=== PATIENT | female | born 1940 | race American Indian/Alaskan Native ===

== ENCOUNTER 2017-10-06 06:27 | Observation (INO) | payer MEDICARE, MEDICAID ==
[2017-10-06] MEDS ORDERED: ASPIRIN PO ONE (06:49)
[2017-10-06 07:56] LABS: Basophils % (Auto) 0.5 % (0.0-1.8); Eosinophils # (Auto) 0.1 K/mm3 (0.0-0.4); Eosinophils % (Auto) 2.6 % (0.0-4.3); Hematocrit 37.4 % (30.3-42.9); Hemoglobin 12.7 gm/dl (10.1-14.3); Lymphocytes # (Auto) 1.3 K/mm3 (1.2-5.4); Lymphocytes % (Auto) 23.9 % (13.4-35.0); Mean Corpuscular HGB Conc 34 % (30-34); Mean Corpuscular Hemoglobin 30 pg (28-32); Mean Corpuscular Volume 87 fl (79-97); Monocytes # (Auto) 0.4 K/mm3 (0.0-0.8); Monocytes % (Auto) 6.4 % (0.0-7.3); Platelet Count 312 K/mm3 (140-440); Red Blood Count 4.31 M/mm3 (3.65-5.03); Red Cell Distribution Width 14.1 % (13.2-15.2)
[2017-10-06 08:04] LABS: BUN/Creatinine Ratio 20; Blood Urea Nitrogen 12 mg/dL (7-17); Calcium 9.2 mg/dL (8.4-10.2); Hemolysis Index 97
[2017-10-06] MEDS ORDERED: ASPIRIN ONE (09:47)
[2017-10-06] MEDS ORDERED: MORPHINE IV ONE (10:43)
[2017-10-06] MEDS ORDERED: ZOFRAN IV ONE (10:43)
--- NOTE | 2017-10-06 10:47 | Emergency Department Report ---
ED Chest Pain HPI - General Chief Complaint: Chest Pain Stated Complaint: RIGHT SHOULDER PAIN Time Seen by Provider: 10/06/17 10:32 Source: patient Mode of arrival: Wheelchair Limitations: Physical Limitation - History of Present Illness Initial Comments: Patient is 76 years old female recently moved from [place]. Patient had history of coronary artery disease, pacemaker and hypertension. Patient presented complaining of left sided chest pain started yesterday, on and off. Patient stated that pain is better now. Pain radiated to neck and right jaw. Patient denied any shortness of breath. Patient also complained off right shoulder pain, she stated that she fell on September 30 , her symptoms get better until 2 days ago when she started having trouble using her right shoulder. MD Complaint: chest pain -: Last night Pain Location: left chest Severity: moderate Quality: aching, sharp Consistency: intermittent - Related Data Home Medications Medication Instructions Recorded Confirmed Last Taken Furosemide [Lasix] 20 mg PO QDAY 10/06/17 10/06/17 10/05/17 Lisinopril [Zestril TAB] 40 mg PO QDAY 10/06/17 10/06/17 10/05/17 amLODIPine [Norvasc] 10 mg PO DAILY 10/06/17 10/06/17 10/05/17 Allergies Allergy/AdvReac Type Severity Reaction Status Date / Time No Known Allergies Allergy Unverified 10/06/17 06:49 Heart Score - HEART Score History: Moderately suspicious EKG: Non-specific Age: > 65 Risk factors: 1-2 risk factors Troponin: < normal limit HEART Score: 5 - Critical Actions Critical Actions: 4-6 pts:12-16.6% risk of adverse cardiac event. Should be admitted ED Review of Systems ROS: Stated complaint: RIGHT SHOULDER PAIN Other details as noted in HPI Comment: All other systems reviewed and negative Constitutional: denies: chills, fever Respiratory: denies: cough, shortness of breath, SOB with exertion, SOB at rest , wheezing Cardiovascular: chest pain. denies: palpitations Gastrointestinal: denies: abdominal pain, nausea, vomiting, diarrhea, constipation, hematemesis, melena, hematochezia Neurological: denies: headache, weakness, numbness, paresthesias, confusion, abnormal gait, vertigo ED Past Medical Hx - Past Medical History Previous Medical History?: Yes Hx Hypertension: Yes Hx Heart Attack/AMI: Yes Hx Asthma: Yes - Surgical History Past Surgical History?: Yes Hx Pacemaker: Yes - Social History Smoking Status: Former Smoker Substance Use Type: None - Medications Home Medications: Home Medications Medication Instructions Recorded Confirmed Last Taken Type Furosemide [Lasix] 20 mg PO QDAY 10/06/17 10/06/17 10/05/17 History Lisinopril [Zestril TAB] 40 mg PO QDAY 10/06/17 10/06/17 10/05/17 History amLODIPine [Norvasc] 10 mg PO DAILY 10/06/17 10/06/17 10/05/17 History ED Physical Exam - General Limitations: Physical Limitation General appearance: alert, in no apparent distress - Head Head exam: Present: atraumatic, normocephalic, normal inspection - Eye Eye exam: Present: normal appearance - ENT ENT exam: Present: normal exam, normal orophraynx, mucous membranes moist - Neck Neck exam: Present: normal inspection, full ROM. Absent: tenderness, meningismus, lymphadenopathy, thyromegaly - Respiratory Respiratory exam: Present: normal lung sounds bilaterally. Absent: respiratory distress, wheezes, rales, rhonchi, stridor, chest wall tenderness, accessory muscle use, decreased breath sounds, prolonged expiratory - Cardiovascular Cardiovascular Exam: Present: regular rate, normal rhythm, normal heart sounds - GI/Abdominal GI/Abdominal exam: Present: soft, normal bowel sounds. Absent: distended, tenderness, guarding, rebound, rigid, diminished bowel sounds, organomegaly, mass, bruit, pulsatile mass, hernia - Extremities Exam Extremities exam: Present: normal inspection. Absent: full ROM (right shoulder with decreased range of motion and tenderness.), tenderness, normal capillary refill, pedal edema, joint swelling, calf tenderness - Back Exam Back exam: Present: normal inspection, full ROM. Absent: tenderness, CVA tenderness (R), CVA tenderness (L), muscle spasm, paraspinal tenderness, vertebral tenderness, rash noted - Neurological Exam Neurological exam: Present: alert, oriented X3, CN II-XII intact, normal gait, reflexes normal - Skin Skin exam: Present: warm, intact, normal color ED Course Vital Signs 10/06/17 10/06/17 10/06/17 06:44 09:20 09:27 Temperature 98.2 F Pulse Rate 93 H Respiratory 18 18 Rate Blood Pressure 142/86 O2 Sat by Pulse 96 98 95 Oximetry 10/06/17 10/06/17 10/06/17 09:30 09:45 11:25 Temperature Pulse Rate 70 74 73 Respiratory 20 13 18 Rate Blood Pressure 128/73 128/73 126/74 O2 Sat by Pulse 97 97 Oximetry 10/06/17 10/06/17 11:31 11:45 Temperature Pulse Rate 77 80 Respiratory 14 12 Rate Blood Pressure 126/74 126/74 O2 Sat by Pulse 94 97 Oximetry ED Medical Decision Making - Lab Data Result diagrams: 10/06/17 14:56 10/06/17 15:01 - EKG Data -: EKG Interpreted by Me EKG shows normal: sinus rhythm - EKG Data Interpretation: no acute changes - Medical Decision Making I discussed the patient is Dr. Hi, he agreed to admit the patient to his service. Critical care attestation.: If time is entered above; I have spent that time in minutes in the direct care of this critically ill patient, excluding procedure time. ED Disposition Clinical Impression: Chest pain, Sprain of right shoulder Disposition: - OP ADMIT IP TO THIS HOSP Is pt being admited?: Yes Condition: Stable
--- NOTE | 2017-10-06 11:51 | History and Physical Report ---
History of Present Illness Chief complaint: My chest hurts History of present illness: 76 YO Female with HTN, DE, Asthma, Obesity, Cardiomypathy S/P Pacemaker placement presents to ED for evaluation. Pt states that she has experienced pain in her chest over the past 2 days with worsening symptoms over the past 1 day. Pt states that the pain is 5/10, substernal, localized to the left chest, radiates to neck and right jaw, intermittent, sharp in nature, not worsened with exertion, or relieved with rest. Pt also complains of right shoulder pain after she slipped and experienced a fall from a standing position subsequently landing on her right shoulder. Pt also acknowledges intermittent palpitations, but denies fever, chills,NVD, Syncope, BRBPR, Productive cough, skin rash, recent ill contacts, seizures, unilateral leg swelling, calf pain, prolonged travel/immobility, individual/family history of DVT/PE, hemoptysis, loss of bowel/bladder continence. Pt seen and evaluated in ED and found to have symptoms consistent with ACS, as well as Diastolic CHF. Pt admitted to telemetry. Cardiology consulted in ED. Past History Past Medical History: acute DE, hypertension, other (Asthma, Obesity, Cardiomyopathy) Past Surgical History: Other (Pacemaker placement) Social history: single, lives with family. denies: smoking, alcohol abuse, prescription drug abuse Family history: diabetes, hypertension Medications and Allergies Allergies Allergy/AdvReac Type Severity Reaction Status Date / Time No Known Allergies Allergy Unverified 10/06/17 06:49 Home Medications Medication Instructions Recorded Confirmed Last Taken Type Furosemide [Lasix] 20 mg PO QDAY 10/06/17 10/06/17 10/05/17 History Lisinopril [Zestril TAB] 40 mg PO QDAY 10/06/17 10/06/17 10/05/17 History amLODIPine [Norvasc] 10 mg PO DAILY 10/06/17 10/06/17 10/05/17 History Review of Systems Constitutional: no weight gain, no fever, no chills, no sweats Ears, nose, mouth and throat: no ear pain, no ear discharge, no tinnitis, no decreased hearing, no nasal congestion, no nasal discharge Breasts: no change in shape, no swelling, no mass Cardiovascular: chest pain, shortness of breath Respiratory: no cough, no cough with sputum, no excessive sputum, no hemoptysis Gastrointestinal: no abdominal pain, no nausea, no vomiting, no diarrhea, no constipation Genitourinary Female: no pelvic pain, no flank pain, no menorrhagia, no dysuria , no urinary frequency, no urgency Rectal: no pain, no incontinence, no bleeding Musculoskeletal: no neck stiffness, no neck pain, no shooting arm pain, no arm numbness/tingling, no low back pain, no shooting leg pain, no leg numbness/ tingling Integumentary: no pruritis, no redness, no sores, no wounds, no jaundice, no boils Neurological: no head injury, no transient paralysis, no paralysis, no weakness , no parathesias, no numbness, no tingling, no seizures, no syncope Psychiatric: no anxiety, no memory loss, no change in sleep habits, no sleep disturbances, no insomnia, no hypersomnia Endocrine: no cold intolerance, no heat intolerance, no polyphagia, no excessive thirst, no polydipsia, no polyuria, no nocturia Hematologic/Lymphatic: no easy bruising, no easy bleeding, no lymphadenopathy, no lymphedema Allergic/Immunologic: no urticaria, no allergic rhinitis, no wheezing, no persistent infections, no anaphylaxis, no angioedema Exam - Constitutional Vitals: Temp Pulse Resp BP Pulse Ox 98.2 F 93 H 18 142/86 96 10/06/17 06:44 10/06/17 06:44 10/06/17 06:44 10/06/17 06:44 10/06/17 06:44 General appearance: Present: mild distress, obese - EENT Eyes: Present: PERRL ENT: hearing intact, clear oral mucosa - Neck Neck: Present: supple, normal ROM - Respiratory Respiratory effort: normal Respiratory: bilateral: CTA - Cardiovascular Heart Sounds: Present: S1 & S2. Absent: rub, click - Extremities Extremities: pulses symmetrical, No edema Peripheral Pulses: within normal limits - Abdominal General gastrointestinal: Present: soft, non-tender, non-distended, normal bowel sounds Female genitourinary: Present: normal - Integumentary Integumentary: Present: clear, warm, dry - Musculoskeletal Musculoskeletal: gait normal, strength equal bilaterally - Psychiatric Psychiatric: appropriate mood/affect, intact judgment & insight - Neurologic Neurologic: CNII-XII intact, moves all extremities Results - Labs CBC & Chem 7: 10/06/17 14:56 10/06/17 15:01 Labs: Abnormal lab results 10/06/17 10/06/17 Range/Units 07:26 10:45 D-Dimer 851.45 H (0-234) ng/mlDDU Creatinine 0.6 L (0.7-1.2) mg/dL Assessment and Plan - Patient Problems (1) ACS (acute coronary syndrome) Current Visit: Yes Status: Acute Plan to address problem: Admit to telemetry: serial cardiac enzymes, ekg, telemetry, d dimer, bnp, cardiology consulted, Chest X ray, morphine, supplemental oxygen, nitro, aspirin. (2) CHF (congestive heart failure) Current Visit: Yes Status: Acute Qualifiers: Heart failure type: diastolic Heart failure chronicity: acute Qualified Code(s): I50.31 - Acute diastolic (congestive) heart failure Plan to address problem: Strict I/O, Afterload reduction, daily weight, monitor uop q shift, Echo, Cardiology consulted, Chest X ray, BNP, D dimer, CT angio chest. (3) HTN (hypertension) Current Visit: Yes Status: Acute Qualifiers: Hypertension type: essential hypertension Qualified Code(s): I10 - Essential (primary) hypertension Plan to address problem: Monitor BP q shift, continue medical management, IV hydralazine prn (4) Sprain of right shoulder Current Visit: Yes Status: Acute Qualifiers: Encounter type: initial encounter Plan to address problem: Shoulder x ray, pain control (5) DVT prophylaxis Current Visit: Yes Status: Acute Plan to address problem: SCD to BLE while in bed.
[2017-10-06] MEDS ORDERED: TYLENOL PO PRN (11:53)
[2017-10-06] MEDS ORDERED: SODIUM CHLORIDE FLUSH SYRINGE 10 ML IV PRN ×2 (11:53)
[2017-10-06] MEDS ORDERED: NITROSTAT SL PRN (11:53)
[2017-10-06] MEDS ORDERED: BABY ASPIRIN PO STA (11:53)
[2017-10-06] MEDS ORDERED: PROVENTIL IH PRN (11:53)
[2017-10-06] MEDS ORDERED: ZOFRAN IV PRN (11:53)
--- NOTE | 2017-10-06 12:31 | XRay Report ---
AP CHEST: HISTORY: chest pain AP view of the chest demonstrates a normal mediastinal and cardiac contour with clear lungs and normal bony and soft tissue structures. A 2-lead pacemaker device is in position. IMPRESSION: No acute cardiopulmonary process identified.
[2017-10-06 15:18] LABS: Basophils % (Auto) 0.2 % (0.0-1.8); Eosinophils # (Auto) 0.1 K/mm3 (0.0-0.4); Eosinophils % (Auto) 1.2 % (0.0-4.3); Hematocrit 38.3 % (30.3-42.9); Hemoglobin 12.3 gm/dl (10.1-14.3); Lymphocytes # (Auto) 1.4 K/mm3 (1.2-5.4); Lymphocytes % (Auto) 18.5 % (13.4-35.0); Mean Corpuscular HGB Conc 32 % (30-34); Mean Corpuscular Hemoglobin 29 pg (28-32); Mean Corpuscular Volume 89 fl (79-97); Monocytes # (Auto) 0.4 K/mm3 (0.0-0.8); Monocytes % (Auto) 5.6 % (0.0-7.3); Platelet Count 321 K/mm3 (140-440); Red Cell Distribution Width 13.9 % (13.2-15.2)
[2017-10-06 15:39] LABS: BUN/Creatinine Ratio 18; Blood Urea Nitrogen 11 mg/dL (7-17); Calcium 9.1 mg/dL (8.4-10.2); Hemolysis Index 44
[2017-10-06 15:44] LABS: Chol/HDL Ratio 3.9 %
--- NOTE | 2017-10-06 17:41 | Cat Scan Report ---
FINAL REPORT PROCEDURE: CT ANGIO CHEST TECHNIQUE: Computerized axial tomographic angiography of the chest and pulmonary arteries was performed after the IV injection of iodinated nonionic contrast. The image data was postprocessed using maximum intensity projection (MIP) and 2-dimensional multiplanar reformatted (MPR) techniques. The examination is specifically tailored to the evaluation of the pulmonary arteries per clinical request. HISTORY: Short of breath 786.09, chest pain 786.50, CHEST PAIN COMPARISON: No prior studies are available for comparison. FINDINGS: Heart and pericardium: Heart is mildly prominent in size. No pericardial effusion or thickening is seen. Dual lead pacemaker is present. Thoracic aorta: No aneurysm or dissection. Pulmonary vasculature: Mildly limited evaluation due to motion artifact. No gross evidence of pulmonary emboli Lymph nodes: No enlarged thoracic lymph nodes. Lungs: No infiltrates or focal lesions are identified. Pleural space: No effusion, thickening, or pneumothorax. Musculoskeletal structures: Thoracic spine degenerative disc changes are present. Upper abdominal structures: No significant abnormality. IMPRESSION: Mildly limited evaluation due to motion artifact. No pulmonary emboli are identified
[2017-10-06] MEDS: MORPHINE IV PRN ×2 (18:26→23:00)
[2017-10-06] MEDS: PEPCID PO SCH (22:07)
[2017-10-06] MEDS: SODIUM CHLORIDE FLUSH SYRINGE 10 ML IV SCH (22:07)
[2017-10-07] MEDS: MORPHINE IV PRN ×2 (04:15→11:25)
--- NOTE | 2017-10-07 07:35 | XRay Report ---
FINAL REPORT EXAM: XR SHOULDER 2+V RT HISTORY: Rt shoulder pain post fall/xweeks COMPARISONS: None. FINDINGS: Three views right shoulder, 4 total images Right glenohumeral joint appears intact. 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 Acromioclavicular and coracoclavicular intervals are within normal limits. No displaced fractures. Incomplete evaluation of the adjacent right lung is unremarkable. Partially imaged left chest pacemaker leads. IMPRESSION: No acute findings identified. There is mild acromioclavicular greater than glenohumeral osteoarthrosis.
[2017-10-07] MEDS ORDERED: LEXISCAN IV ONE ×2 (09:41→09:44)
[2017-10-07] MEDS ORDERED: MORPHINE ONE (11:20)
[2017-10-07] MEDS: PEPCID PO SCH (14:47)
[2017-10-07] MEDS: SODIUM CHLORIDE FLUSH SYRINGE 10 ML IV SCH (14:48)
--- NOTE | 2017-10-07 15:54 | Discharge Summary ---
Providers - Providers Date of Admission: 10/06/17 11:53 Date of discharge: 10/07/17 Attending physician: KHUSHI MONTE 10/06/17 Consult to Cardiac Rehabilitation [CONS] Routine Reason For Exam: Phase I 10/06/17 11:53 Consult to Cardiology [CONS] Routine Consulting Provider: STEVAN FINLEY Reason For Exam: acs Primary care physician: REGISTERED MASSAGE THERAPIST Hospitalization Condition: Stable Hospital course: Chest pains, atypical, costochondritis suspected if stress test negative. PPM Elevated d-dimer, negative CTA chest for PE Disposition: GA-01 TO HOME OR SELFCARE Time spent for discharge: 32 minutes - Discharge Diagnoses (1) ACS (acute coronary syndrome) Status: Ruled-out Core Measure Documentation - Palliative Care Palliative Care/ Comfort Measures: Not Applicable - Core Measures Any of the following diagnoses?: none - VTE Discharge Requirements Deep Vein Thrombosis/Pulmonary Embolism Present on Admission: No Has pt received <5 days of overlap therapy or INR<2.0: No Anticoagulant overlap therapy prescribed at discharge: No Contraindication No Overlap Therapy order at DC: Not Indicated Exam - Physical Exam Narrative exam: GEN: WDWN, NAD, Awake, Alert, Orientated x 3 HEENT: NCAT, EOMI, PERRL, OP Clear NECK: supple, no adenopathy, no thyromegaly, no JVD CVS/HEART: RRR, normal S1S2, pulses present bilaterally CHEST/LUNGS: CTA B, Symmetrical chest expansion, good air entry bilaterally, reproducible left chest wall tenderness GI/Abdomen: soft, NTND, good bowel sounds, no guarding or rebound /Bladder: no suprapubic tenderness, no CVA or paraspinal tenderness EXT/Skin: no c/c/e, no obvious rash MSK: right shoulder sling, left foot taped Neuro: CN 2-12 grossly intact, no new focal deficits Psych: calm - Constitutional Vitals: Temp Pulse Resp BP Pulse Ox 98.5 F 96 H 16 145/68 94 10/07/17 07:14 10/07/17 11:16 10/07/17 09:15 10/07/17 11:16 10/07/17 07:14 Plan Activity: other (no strenous activities until cleared by cardiology) Diet: low salt Additional Instructions: PPM; see cardiology outpatient for pacemaker check Follow up with: PRIMARY CARE, [Primary Care Provider] - 3-5 Days STEVAN FINLEY MD [Staff Physician] - 7 Days
--- NOTE | 2017-10-07 15:58 | Progress Note ---
Assessment and Plan Assessment and plan: Chest pains, atypical, costochondritis suspected if stress test negative. PPM; see cardiology outpatient for ppm check Elevated d-dimer, negative CTA chest for PE - Patient Problems (1) ACS (acute coronary syndrome) Current Visit: Yes Status: Ruled-out History Interval history: Patient was seen and examined. Follow-up on current diagnosis. Overnight uneventful. Patient denies any chest pain, shortness breath, nausea/vomiting or severe headaches. Imaging, nursing note, chart, labs and old chart reviewed. Discussed with patient. Hospitalist Physical - Physical exam Narrative exam: GEN: WDWN, NAD, Awake, Alert, Orientated x 3 HEENT: NCAT, EOMI, PERRL, OP Clear NECK: supple, no adenopathy, no thyromegaly, no JVD CVS/HEART: RRR, normal S1S2, pulses present bilaterally CHEST/LUNGS: CTA B, Symmetrical chest expansion, good air entry bilaterally, reproducible left chest wall tenderness GI/Abdomen: soft, NTND, good bowel sounds, no guarding or rebound /Bladder: no suprapubic tenderness, no CVA or paraspinal tenderness EXT/Skin: no c/c/e, no obvious rash MSK: right shoulder sling, left foot taped Neuro: CN 2-12 grossly intact, no new focal deficits Psych: calm - Constitutional Vitals: Temp Pulse Resp BP Pulse Ox 98.5 F 96 H 16 145/68 94 10/07/17 07:14 10/07/17 11:16 10/07/17 09:15 10/07/17 11:16 10/07/17 07:14 General appearance: Present: mild distress, obese Results - Labs CBC & Chem 7: 10/06/17 14:56 10/06/17 15:01 Labs: Laboratory Last Values WBC 7.7 K/mm3 (4.5-11.0) 10/06/17 14:56 RBC 4.30 M/mm3 (3.65-5.03) 10/06/17 14:56 Hgb 12.3 gm/dl (10.1-14.3) 10/06/17 14:56 Hct 38.3 % (30.3-42.9) 10/06/17 14:56 MCV 89 fl (79-97) 10/06/17 14:56 MCH 29 pg (28-32) 10/06/17 14:56 MCHC 32 % (30-34) 10/06/17 14:56 RDW 13.9 % (13.2-15.2) 10/06/17 14:56 Plt Count 321 K/mm3 (140-440) 10/06/17 14:56 Lymph % (Auto) 18.5 % (13.4-35.0) 10/06/17 14:56 [place] % (Auto) 5.6 % (0.0-7.3) 10/06/17 14:56 Eos % (Auto) 1.2 % (0.0-4.3) 10/06/17 14:56 Baso % (Auto) 0.2 % (0.0-1.8) 10/06/17 14:56 Lymph # 1.4 K/mm3 (1.2-5.4) 10/06/17 14:56 [place] # 0.4 K/mm3 (0.0-0.8) 10/06/17 14:56 Eos # 0.1 K/mm3 (0.0-0.4) 10/06/17 14:56 Baso # 0.0 K/mm3 (0.0-0.1) 10/06/17 14:56 Seg Neutrophils % 74.5 % (40.0-70.0) H 10/06/17 14:56 Seg Neutrophils # 5.8 K/mm3 (1.8-7.7) 10/06/17 14:56 D-Dimer 851.45 ng/mlDDU (0-234) H 10/06/17 10:45 Sodium 138 mmol/L (137-145) 10/06/17 15:01 Potassium 4.2 mmol/L (3.6-5.0) 10/06/17 15:01 Chloride 97.4 mmol/L (98-107) L 10/06/17 15:01 Carbon Dioxide 26 mmol/L (22-30) 10/06/17 15:01 Anion Gap 19 mmol/L 10/06/17 15:01 BUN 11 mg/dL (7-17) 10/06/17 15:01 Creatinine 0.6 mg/dL (0.7-1.2) L 10/06/17 15:01 Estimated GFR > 60 ml/min 10/06/17 15:01 BUN/Creatinine Ratio 18 % 10/06/17 15:01 Glucose 116 mg/dL (65-100) H 10/06/17 15:01 Calcium 9.1 mg/dL (8.4-10.2) 10/06/17 15:01 Troponin T < 0.010 ng/mL (0.00-0.029) 10/06/17 19:41 Triglycerides 118 mg/dL (2-149) 10/06/17 15:02 Cholesterol 203 mg/dL (50-199) H 10/06/17 15:02 LDL Cholesterol Direct 135 mg/dL (50-130) H 10/06/17 15:02 HDL Cholesterol 52 mg/dL (40-59) 10/06/17 15:02 Cholesterol/HDL Ratio 3.90 % 10/06/17 15:02
[2017-10-07 18:02] VITALS: BP 120/63
--- NOTE | 2017-10-07 23:21 | Treadmill Report ---
THALLIUM STRESS TEST LEFT VENTRICLE: Left ventricular chamber size is within normal spread. Perfusion study demonstrates a small fixed inferoapical defect, with minimal to no significant reversibility on the resting study. Gated analysis demonstrates normal left ventricular systolic function with ejection fraction calculated at 63%. CONCLUSION: Small fixed inferoapical defect likely due to breast attenuation artifact. There is no significant reversible ischemia demonstrated on the study. Clinical correlation is recommended ____. JOB# [id number] CA/NTS
== END 2017-10-07 17:56 | disposition home or self-care (01) ==
LOC: ED 06:27 → INTOOBSV 11:53 → 4A 11:53
PROVIDERS: ADMIT Internal Medicine; ATTEND Internal Medicine
DX: I24.9 Acute ischemic heart disease, unspecified (principal); I11.0 Hypertensive heart disease with heart failure; I50.9 Heart failure, unspecified; I42.9 Cardiomyopathy, unspecified; S43.401A Unspecified sprain of right shoulder joint, initial encounter; Z95.0 Presence of cardiac pacemaker; Z79.899 Other long term (current) drug therapy; I25.2 Old myocardial infarction; J45.909 Unspecified asthma, uncomplicated; Z87.891 Personal history of nicotine dependence; X58.XXXA Exposure to other specified factors, initial encounter; Y93.89 Activity, other specified; Y92.89 Other specified places as the place of occurrence of the external cause; Y99.8 Other external cause status; Z83.3 Family history of diabetes mellitus; Z82.49 Family history of ischemic heart disease and other diseases of the circulatory system
CPT/HCPCS: 36415; 71045; 71275; 73030; 78452; 80048; 80061; 84484; 85025; 85379; 93005; 93010; 93017; 93306; 94660; 96374; 96375; 96376; 99285; A9502; G0378; J2270; J2405; J2785; Q9967

== ENCOUNTER 2018-01-14 08:27 | Emergency (ER) | payer MEDICARE, MEDICAID ==
[2018-01-14 08:36] VITALS: BP 162/85
[2018-01-14] MEDS ORDERED: DECADRON IM STA (09:01)
--- NOTE | 2018-01-14 09:01 | Emergency Department Report ---
Minor Respiratory - HPI Chief Complaint: Upper Respiratory Infection Stated Complaint: FEVER ONE WEEK Time Seen by Provider: 01/14/18 08:52 Duration: 1 week Pain Location: Facial Severity: mild Minor Respiratory: Yes Rhinorrhea (2/10 nasal congestion and facial pain), Yes Able to Tolerate Fluids, Yes Cough (dry cough), No Sore Throat, No Ear Pain ( clogged ear sensation), No Sick Contacts, No Hemoptysis, No Chest Pain, No Shortness of Breath, No Fever Other History: This is a 77-year-old female here report that she is having nasal congestion, runny nose and that she feels feverish and coughing over the last 1 week. She is reporting that she is having cough. Denies any shortness of breath or chest pain but she reports that she is having some facial pain at 2 /10 and feels pressure and sore. Denies any headache, nausea or vomiting. Patient is also reporting that she is having problems with her urination and she thinks she has a urinary infection. Denies any urinary burning frequency or urgency but she said her urine is kind of dark. Denies any back pain or abdominal pain. Patient denies any fever and chills and said that she has been taking [id number] medication but it is not helping. ED Review of Systems ROS: Stated complaint: FEVER ONE WEEK Other details as noted in HPI Constitutional: chills, fever Eyes: denies: eye pain, eye discharge, vision change ENT: congestion, other (facial pain and clogged ear sensation). denies: ear pain, throat pain, dental pain, hearing loss, epistaxis Respiratory: cough. denies: orthopnea, shortness of breath, SOB with exertion, SOB at rest, stridor, wheezing Cardiovascular: denies: chest pain, palpitations, edema, syncope Gastrointestinal: denies: abdominal pain, nausea, vomiting, diarrhea Genitourinary: other (dark color urine). denies: urgency, dysuria, frequency, discharge Musculoskeletal: denies: back pain, joint swelling, arthralgia, myalgia Skin: denies: rash, lesions Neurological: denies: headache, weakness, numbness, paresthesias, abnormal gait , vertigo ED Past Medical Hx - Past Medical History Previous Medical History?: Yes Hx Hypertension: Yes Hx Heart Attack/AMI: Yes Hx Asthma: Yes - Surgical History Past Surgical History?: Yes Hx Pacemaker: Yes - Family History Family history: hypertension - Social History Smoking Status: Never Smoker Substance Use Type: None - Medications Home Medications: Home Medications Medication Instructions Recorded Confirmed Last Taken Type Furosemide [Lasix TAB] 20 mg PO QDAY 10/06/17 10/06/17 10/05/17 History Lisinopril [Zestril TAB] 40 mg PO QDAY 10/06/17 10/06/17 10/05/17 History amLODIPine [Norvasc] 10 mg PO DAILY 10/06/17 10/06/17 10/05/17 History Amoxicillin [Amoxicillin TAB] 875 mg PO BID 10 Days #20 tablet 01/14/18 Unknown Rx Cetirizine HCl [Zyrtec] 10 mg PO QDAY 14 Days #14 tablet 01/14/18 Unknown Rx Fluticasone [Flonase] 1 spray NS QDAY 14 Days #1 bottle 01/14/18 Unknown Rx predniSONE [Deltasone] 50 mg PO QDAY 3 Days #3 tab 01/14/18 Unknown Rx Minor Respiratory Exam - Exam General: Vital signs noted. No distress. Alert and acting appropriately. This is a 77-year-old female well-nourished well-developed in no acute distress. HEENT: Yes Moist Mucous Membranes (uvula midline and oral airways patent. Tongue is normal), Yes Rhinorrhea (nasal congestion with erythema), Yes Frontal Tenderness (tender to palpate), Yes Maxillary Tenderness (tender to palpate), No Pharyngeal Erythema, No Pharyngeal Exudates, No Conjuctival Injection Ear: Neither TM Bulge (congested without erythema), Neither TM Erythema, Neither EAC Pain, Neither EAC Discharge Neck: Yes Supple (no C-spine tenderness and full range of motion), No Adenopathy Lungs: Yes Good Air Exchange (clear to auscultation bilaterally, no rhonchi wheezes or rales), Yes Cough (dry cough), No Wheezes, No Ronchi, No Stridor, No Labored Respirations, No Retractions, No Use of Accessory Muscles, No Other Abnormal Lung Sounds Heart: Yes Regular (regular rate), No Murmur Abdomen: Yes Tenderness (soft, nontender to palpation in all quadrants), Yes Normal Bowel Sounds (normal bowel sounds in all quadrants), No Peritoneal Signs Skin: No Rash, No Edema Neurologic: Alert and oriented 3. Normal gait and GCS is 15. Musculoskeletal: No cce. + 2 pulses in all extremities, no neurovascular compromise ED Course Vital Signs 01/14/18 08:34 Temperature 98.8 F Pulse Rate 102 H Respiratory 18 Rate Blood Pressure 162/85 O2 Sat by Pulse 98 Oximetry Vital Signs 01/14/18 01/14/18 08:34 10:59 Temperature 98.8 F Pulse Rate 102 H 84 Respiratory 18 Rate Blood Pressure 162/85 O2 Sat by Pulse 98 Oximetry - Reevaluation(s) Reevaluation #1: 01/14/18 10:53 Patient given Decadron 10 mg IM and she says she feels better. ED Medical Decision Making - Lab Data Result diagrams: 01/14/18 09:14 01/14/18 09:14 Lab Results 01/14/18 01/14/18 01/14/18 Range/Units 09:05 09:14 09:14 WBC 5.0 (4.5-11.0) K/mm3 RBC 4.52 (3.65-5.03) M/mm3 Hgb 13.3 (10.1-14.3) gm/dl Hct 39.7 (30.3-42.9) % MCV 88 (79-97) fl MCH 29 (28-32) pg MCHC 33 (30-34) % RDW 14.7 (13.2-15.2) % Plt Count 306 (140-440) K/mm3 Lymph % (Auto) 38.5 H (13.4-35.0) % [place] % (Auto) 6.1 (0.0-7.3) % Eos % (Auto) 3.8 (0.0-4.3) % Baso % (Auto) 1.9 H (0.0-1.8) % Lymph # 1.9 (1.2-5.4) K/mm3 [place] # 0.3 (0.0-0.8) K/mm3 Eos # 0.2 (0.0-0.4) K/mm3 Baso # 0.1 (0.0-0.1) K/mm3 Seg Neutrophils % 49.7 (40.0-70.0) % Seg Neutrophils # 2.5 (1.8-7.7) K/mm3 Sodium 140 (137-145) mmol/L Potassium 3.9 (3.6-5.0) mmol/L Chloride 100.7 (98-107) mmol/L Carbon Dioxide 27 (22-30) mmol/L Anion Gap 16 mmol/L BUN 11 (7-17) mg/dL Creatinine 0.6 L (0.7-1.2) mg/dL Estimated GFR > 60 ml/min BUN/Creatinine Ratio 18 % Glucose 92 (65-100) mg/dL Calcium 9.8 (8.4-10.2) mg/dL Urine Color Straw (Yellow) Urine Turbidity Clear (Clear) Urine pH 8.0 H (5.0-7.0) Ur Specific [place] 1.004 (1.003-1.030) Urine Protein <15 mg/dl (Negative) mg/dL Urine Glucose (UA) Neg (Negative) mg/dL Urine Ketones Neg (Negative) mg/dL Urine Blood Neg (Negative) Urine Nitrite Neg (Negative) Urine Bilirubin Neg (Negative) Urine Urobilinogen < 2.0 (<2.0) mg/dL Ur Leukocyte Esterase Neg (Negative) Urine WBC (Auto) 1.0 (0.0-6.0) /HPF Urine RBC (Auto) 2.0 (0.0-6.0) /HPF U Epithel Cells (Auto) < 1.0 (0-13.0) /HPF - Radiology Data Radiology results: report reviewed Chest x-ray 2 views dictated by radiologist and report reviewed by myself and she reported below. Patient: ANTHONY MARQUEZ MR#: [id number] : 1940 Acct:[id number] Age/Sex: 77 / F ADM Date: 01/14/18 Loc: ED Attending Dr: Ordering Physician: ANTHONY ARANA Date of Service: 01/14/18 Procedure(s): XR chest routine 2V Accession Number(s): [id number] cc: ANTHONY ARANA Fluoro Time In Minutes: ROUTINE CHEST, TWO VIEWS: HISTORY: Cough, chills. The trachea, heart, mediastinal contour, lung forrest and bony thorax are unremarkable. 2-lead pacemaker device is unchanged since 10/06/17. IMPRESSION: Unremarkable chest x-ray. Transcribed By: TTR Dictated By: MELIA HOOD JR, MD Electronically Authenticated By: MELIA HOOD JR, MD Signed Date/Time: 01/14/18955 DD/ 4 TD/TT: 01/14/18955 - Medical Decision Making Assessment 7-year-old patient here complaining of upper respiratory symptoms cough and fever for over a week. Diagnostics: Chest x-ray 2 views dictated radiologist report reviewed by myself. No acute cardiopulmonary processes Labs: CBC, BMP and urinalysis stable with minor elevation or decrease in some values that is not acute. Assessment/plan 1: Sinusitis-patient given Decadron 10 mg IM in emergency room and discharged home on amoxicillin, prednisone 2: URI with cough and congestion-will be discharged home on Flonase and Zyrtec I discussed with patient her lab results and diagnostic results and she was understanding. I discussed with her diagnosis and treatment plan medication and that she needs to follow up with her primary care physician in 2 days and she was understanding. Patient discharged home in stable condition with her family. Vital signs are stable she is afebrile and she says she is feeling better. Prescription for Zyrtec, Flonase amoxicillin and prednisone. - Differential Diagnosis PNA, URI with cough and congestion, sinusitis, bacterial infection Critical care attestation.: If time is entered above; I have spent that time in minutes in the direct care of this critically ill patient, excluding procedure time. ED Disposition Clinical Impression: URI with cough and congestion Sinusitis Qualifiers: Sinusitis location: unspecified location Chronicity: acute Recurrence: not specified as recurrent Qualified Code(s): J01.90 - Acute sinusitis, unspecified Disposition: - TO HOME OR SELFCARE Is pt being admited?: No Does the pt Need Aspirin: No Condition: Stable Instructions: Sinusitis (ED), Upper Respiratory Infection (ED) Additional Instructions: Please take antibiotic as prescribed Follow-up with primary care physician in 2 days If your condition worsens to include difficulty breathing, swallowing, chest pain, nausea and vomiting and fever, please return to the emergency room JUSTICE. Take Zyrtec and Flonase to relieve congestion Increasing fluid intake Use nasal saline wash to flush and nostrils. Prescriptions: Amoxicillin [Amoxicillin TAB] 875 mg PO BID 10 Days #20 tablet Cetirizine HCl [Zyrtec] 10 mg PO QDAY 14 Days #14 tablet Fluticasone [Flonase] 1 spray NS QDAY 14 Days #1 bottle predniSONE [Deltasone] 50 mg PO QDAY 3 Days #3 tab Referrals: PRIMARY CARE, [Primary Care Provider] - 01/16/18 [facility] [Outside] - 01/16/18 Forms: Accompanied Note
[2018-01-14 09:24] LABS: Basophils # (Auto) 0.1 K/mm3 (0.0-0.1); Basophils % (Auto) 1.9 % (0.0-1.8); Eosinophils # (Auto) 0.2 K/mm3 (0.0-0.4); Eosinophils % (Auto) 3.8 % (0.0-4.3); Hematocrit 39.7 % (30.3-42.9); Hemoglobin 13.3 gm/dl (10.1-14.3); Lymphocytes # (Auto) 1.9 K/mm3 (1.2-5.4); Lymphocytes % (Auto) 38.5 % (13.4-35.0); Mean Corpuscular HGB Conc 33 % (30-34); Mean Corpuscular Hemoglobin 29 pg (28-32); Mean Corpuscular Volume 88 fl (79-97); Monocytes # (Auto) 0.3 K/mm3 (0.0-0.8); Monocytes % (Auto) 6.1 % (0.0-7.3); Platelet Count 306 K/mm3 (140-440); Red Blood Count 4.52 M/mm3 (3.65-5.03); Red Cell Distribution Width 14.7 % (13.2-15.2)
[2018-01-14 09:31] LABS: Bilirubin,Urine NEG (Negative); Blood,Urine NEG (Negative); Color,Urine Straw (Yellow); Protein,Urine <15 mg/dL mg/dL (Negative); Urobilinogen,Urine < 2.0 mg/dL (<2.0)
--- NOTE | 2018-01-14 09:57 | XRay Report ---
ROUTINE CHEST, TWO VIEWS: HISTORY: Cough, chills. The trachea, heart, mediastinal contour, lung forrest and bony thorax are unremarkable. 2-lead pacemaker device is unchanged since 10/06/17. IMPRESSION: Unremarkable chest x-ray.
[2018-01-14 10:28] LABS: BUN/Creatinine Ratio 18; Blood Urea Nitrogen 11 mg/dL (7-17); Calcium 9.8 mg/dL (8.4-10.2); Hemolysis Index 28
== END 2018-01-14 11:20 | disposition home or self-care (01) ==
LOC: ED 08:27
DX: J06.9 Acute upper respiratory infection, unspecified (principal); J01.10 Acute frontal sinusitis, unspecified; J01.00 Acute maxillary sinusitis, unspecified; I10 Essential (primary) hypertension; I25.2 Old myocardial infarction; J45.909 Unspecified asthma, uncomplicated; Z95.0 Presence of cardiac pacemaker
CPT/HCPCS: 36415; 71046; 80048; 81001; 85025; 96372; 99283; J1100

== ENCOUNTER 2019-02-11 09:15 | Emergency (ER) | payer MEDICARE, MEDICAID ==
[2019-02-11 09:30] VITALS: BP 200/120
[2019-02-11] MEDS ORDERED: ACETAMINOPHEN 325 MG TAB PO ONE (10:44)
--- NOTE | 2019-02-11 11:24 | XRay Report ---
RIGHT FOOT, 3 VIEWS INDICATION: foot pain hx surgery. COMPARISON: None. IMPRESSION: There is borderline bone mineralization. Osteotomy changes along the medial surface of the distal first metatarsal is suspected. There is a mild hallux valgus deformity. Moderate degenerat haylee changes at the first metatarsophalangeal joint and midfoot. No erosive joint pathology. No eviden ce for acute fracture or bony destruction. Small plantar spur is noted. The soft tissues are unremark able. Signer Name: Cyrus Bravo Jr, MD Signed: 02/11/2019 11:19 AM Workstation Name: [id number]
--- NOTE | 2019-02-11 11:24 | Emergency Department Report ---
ED Lower Extremity HPI - General Chief Complaint: Extremity Problem,Nontraumatic Stated Complaint: FOOT PAIN Time Seen by Provider: 02/11/19 10:44 Source: patient Mode of arrival: Ambulatory Limitations: No Limitations - History of Present Illness Initial Comments: Mrs. Monreal is a very pleasant 78-year-old female arthritis, asthma, coronary a rtery disease, hypertension, sleep apnea who presents with right foot pain center at the right great toe. She is one month status post foot surgery in [place] her home town. She is here visiting her daughter for the next several months. She will not return to [place] until May. She was instructed to have a nail or screw removed 3 months after the surgery. She wanted an x-ray to make sure that there is no complication of the surgery. She has a slow healing wound at the tip of the toe. She is concerned that the screw may be protruding through that wound,. MD Complaint: other (right foot pain 1 month after surgery) -: Gradual Injury: Foot: Right Place: other (recent surgery) Severity: mild Worsens With: weight bearing Context: other (hx of recent surgery) Associated Symptoms: ambulatory - Related Data Home Medications Medication Instructions Recorded Confirmed Last Taken Furosemide [Lasix TAB] 20 mg PO DAILY 10/06/17 03/13/18 10/05/17 Lisinopril [Zestril TAB] 40 mg PO QDAY 10/06/17 03/13/18 10/05/17 Aspirin [Aspirin BABY CHEW TAB] 81 mg PO BID 03/13/18 03/13/18 Unknown Fluticasone [Flonase] 1 spray NS DAILY 03/13/18 03/13/18 Unknown Previous Rx's Medication Instructions Recorded Last Taken Type dexAMETHasone [Decadron] 4 mg PO Q12H #6 tablet 03/04/18 Unknown Rx Metoprolol [Lopressor TAB] 25 mg PO BID #60 tablet 03/14/18 Unknown Rx amLODIPine [Norvasc] 5 mg PO DAILY #30 tablet 03/14/18 Unknown Rx Allergies Allergy/AdvReac Type Severity Reaction Status Date / Time No Known Allergies Allergy Verified 03/13/18 16:38 ED Review of Systems ROS: Stated complaint: FOOT PAIN Other details as noted in HPI Constitutional: denies: fever, malaise Respiratory: denies: cough Cardiovascular: denies: chest pain Skin: denies: change in color, change in hair/nails Neurological: denies: numbness, paresthesias ED Past Medical Hx - Past Medical History Previous Medical History?: Yes Hx Hypertension: Yes Hx Heart Attack/AMI: Yes (1990) Hx Arthritis: Yes Hx Asthma: Yes Additional medical history: sleep apnea - Surgical History Past Surgical History?: Yes Hx Pacemaker: Yes Hx Cholecystectomy: Yes - Social History Smoking Status: Former Smoker Substance Use Type: None - Medications Home Medications: Home Medications Medication Instructions Recorded Confirmed Last Taken Type Furosemide [Lasix TAB] 20 mg PO DAILY 10/06/17 03/13/18 10/05/17 History Lisinopril [Zestril TAB] 40 mg PO QDAY 10/06/17 03/13/18 10/05/17 History dexAMETHasone [Decadron] 4 mg PO Q12H #6 tablet 03/04/18 03/13/18 Unknown Rx Aspirin [Aspirin BABY CHEW TAB] 81 mg PO BID 03/13/18 03/13/18 Unknown History Fluticasone [Flonase] 1 spray NS DAILY 03/13/18 03/13/18 Unknown History Metoprolol [Lopressor TAB] 25 mg PO BID #60 tablet 03/14/18 Unknown Rx amLODIPine [Norvasc] 5 mg PO DAILY #30 tablet 03/14/18 Unknown Rx ED Physical Exam - General Limitations: No Limitations General appearance: alert, in no apparent distress - Head Head exam: Present: atraumatic, normocephalic - Eye Eye exam: Absent: scleral icterus, conjunctival injection, nystagmus - ENT ENT exam: Present: mucous membranes moist - Neck Neck exam: Present: normal inspection, full ROM - Respiratory Respiratory exam: Absent: respiratory distress - Extremities Exam Extremities exam: Present: other (right foot: well healed vertical scar dorsal aspect of right toe small healed 1 cm circular wound at the tip of the great toe) - Neurological Exam Neurological exam: Present: alert, oriented X3 - Psychiatric Psychiatric exam: Present: normal affect, normal mood - Skin Skin exam: Present: warm, dry, intact, normal color ED Course Vital Signs 02/11/19 09:29 Temperature 97.5 F L Pulse Rate 79 Respiratory 16 Rate Blood Pressure 205/102 [Left] Blood Pressure 200/120 [Right] O2 Sat by Pulse 97 Oximetry ED Lower Extremity MDM - Radiology Data Radiology results: image reviewed Right foot radiographs: No hardware present, no fracture, subluxation, - Medical Decision Making Post operative pain, no evidence of consultation this recent surgery. After clarification from the patient, is likely that she had hardware removed and not inserted. I informed her that there was no signs of infection or fracture. I recommended [id number] Tylenol. Mrs. Monreal also has elevated high blood pressure, asymptomatic. She did not yet take her morning dose of blood pressure medications. She does have ample amount of medication at home and she does not require any medication refilled this time. Critical care attestation.: If time is entered above; I have spent that time in minutes in the direct care of this critically ill patient, excluding procedure time. ED Disposition Clinical Impression: Postoperative pain, H/O foot surgery Disposition: DC-01 TO HOME OR SELFCARE Is pt being admited?: No Does the pt Need Aspirin: No Condition: Stable Additional Instructions: Dr. Cerna is a foot doctor. If you have any concerns, he will be a great resource. Referrals: ISA CERNA DPM [Staff Physician] - 3-5 Days
== END 2019-02-11 11:46 | disposition home or self-care (01) ==
LOC: ED 09:15
DX: G89.18 Other acute postprocedural pain (principal); M79.671 Pain in right foot; I10 Essential (primary) hypertension; I25.2 Old myocardial infarction; M19.90 Unspecified osteoarthritis, unspecified site; J45.909 Unspecified asthma, uncomplicated; G47.30 Sleep apnea, unspecified

== ENCOUNTER 2019-02-14 09:04 | Emergency (ER) | payer MEDICARE, MEDICAID ==
--- NOTE | 2019-02-14 10:24 | Emergency Department Report ---
ED General Adult HPI - General Chief complaint: Extremity Injury, Lower Stated complaint: BILAT KNEE PAIN Time Seen by Provider: 02/14/19 09:37 Source: patient Mode of arrival: Wheelchair Limitations: Physical Limitation - History of Present Illness Initial comments: 78-year-old female who has been referred to a stress recently for retained hardware in her right foot. Does have an appointment coming up for this. She is not here for anything related to her foot. She states that she lives with her daughter. Her chief complaint is swelling of her right knee. She states this is a new problem for her. However, she also states that she has chronic crepitus when she moves her left knee. She will use a walker and does have chronic difficulty in walking. She reports no fever no chills no calf or thigh pain. There's been no leg swelling. She has had no recent travel. -: Gradual Quality: aching Consistency: intermittent Improves with: none Worsens with: none Associated Symptoms: denies other symptoms Treatments Prior to Arrival: none - Related Data Home Medications Medication Instructions Recorded Confirmed Last Taken Furosemide [Lasix TAB] 20 mg PO DAILY 10/06/17 03/13/18 10/05/17 Lisinopril [Zestril TAB] 40 mg PO QDAY 10/06/17 03/13/18 10/05/17 Aspirin [Aspirin BABY CHEW TAB] 81 mg PO BID 03/13/18 03/13/18 Unknown Fluticasone [Flonase] 1 spray NS DAILY 03/13/18 03/13/18 Unknown Previous Rx's Medication Instructions Recorded Last Taken Type dexAMETHasone [Decadron] 4 mg PO Q12H #6 tablet 03/04/18 Unknown Rx Metoprolol [Lopressor TAB] 25 mg PO BID #60 tablet 03/14/18 Unknown Rx amLODIPine [Norvasc] 5 mg PO DAILY #30 tablet 03/14/18 Unknown Rx Naproxen [Naprosyn] 375 mg PO BID PRN #12 tablet 02/14/19 Unknown Rx Allergies Allergy/AdvReac Type Severity Reaction Status Date / Time No Known Allergies Allergy Verified 03/13/18 16:38 ED Review of Systems ROS: Stated complaint: BILAT KNEE PAIN Other details as noted in HPI Constitutional: denies: chills, fever Eyes: denies: eye pain, eye discharge, vision change ENT: denies: ear pain, throat pain Respiratory: denies: cough, shortness of breath, wheezing Cardiovascular: denies: chest pain, palpitations Endocrine: no symptoms reported Gastrointestinal: denies: abdominal pain, nausea, diarrhea Genitourinary: denies: urgency, dysuria, discharge Musculoskeletal: as per HPI, arthralgia. denies: back pain, joint swelling Skin: denies: rash, lesions Neurological: denies: headache, weakness, paresthesias Psychiatric: denies: anxiety, depression Hematological/Lymphatic: denies: easy bleeding, easy bruising ED Past Medical Hx - Past Medical History Previous Medical History?: Yes Hx Hypertension: Yes Hx Heart Attack/AMI: Yes (1990) Hx Arthritis: Yes Hx Asthma: Yes Additional medical history: sleep apnea - Surgical History Past Surgical History?: Yes Hx Pacemaker: Yes Hx Cholecystectomy: Yes Additional Surgical History: Right foot surgery - Social History Smoking Status: Former Smoker Substance Use Type: Prescribed - Medications Home Medications: Home Medications Medication Instructions Recorded Confirmed Last Taken Type Furosemide [Lasix TAB] 20 mg PO DAILY 10/06/17 03/13/18 10/05/17 History Lisinopril [Zestril TAB] 40 mg PO QDAY 10/06/17 03/13/18 10/05/17 History dexAMETHasone [Decadron] 4 mg PO Q12H #6 tablet 03/04/18 03/13/18 Unknown Rx Aspirin [Aspirin BABY CHEW TAB] 81 mg PO BID 03/13/18 03/13/18 Unknown History Fluticasone [Flonase] 1 spray NS DAILY 03/13/18 03/13/18 Unknown History Metoprolol [Lopressor TAB] 25 mg PO BID #60 tablet 03/14/18 Unknown Rx amLODIPine [Norvasc] 5 mg PO DAILY #30 tablet 03/14/18 Unknown Rx Naproxen [Naprosyn] 375 mg PO BID PRN #12 tablet 02/14/19 Unknown Rx ED Physical Exam - General Limitations: Physical Limitation General appearance: alert, in no apparent distress - Head Head exam: Present: atraumatic, normocephalic - Eye Eye exam: Present: normal appearance. Absent: scleral icterus - ENT ENT exam: Present: mucous membranes moist - Neck Neck exam: Present: normal inspection - Respiratory Respiratory exam: Present: normal lung sounds bilaterally. Absent: respiratory distress - Cardiovascular Cardiovascular Exam: Present: regular rate, normal rhythm. Absent: systolic murmur, diastolic murmur, rubs, gallop - GI/Abdominal GI/Abdominal exam: Present: soft, normal bowel sounds. Absent: distended, tenderness, guarding, rebound - Back Exam Back exam: Present: normal inspection - Neurological Exam Neurological exam: Present: alert, oriented X3, CN II-XII intact. Absent: motor sensory deficit - Psychiatric Psychiatric exam: Present: normal affect, normal mood - Skin Skin exam: Present: warm, dry, intact, normal color. Absent: rash ED Course Vital Signs 02/14/19 02/14/19 02/14/19 09:05 09:26 09:45 Temperature 97.9 F Pulse Rate 80 Respiratory 18 16 16 Rate Blood Pressure 200/106 Blood Pressure 194/94 [Left] O2 Sat by Pulse 98 100 Oximetry 02/14/19 02/14/19 02/14/19 09:54 11:09 12:36 Temperature Pulse Rate Respiratory Rate Blood Pressure Blood Pressure 164/78 163/84 142/70 [Left] O2 Sat by Pulse Oximetry - Joint Aspiration/Injection Consent Obtained: verbal consent Time Out Performed: No Indications: R/O crystal arthropathy Side of Body: right Joint Aspirated: knee Ultrasound Guidance: No Skin Prep: Povidone-Iodine1% Needle Size Used: Other (19) Syringe Size Used: Other (30) Fluid Obtained: clear Total Fluid Obtained (mls): 25 Patient Tolerated Procedure: well ED Medical Decision Making - Lab Data Laboratory Results - last 24 hr 02/14/19 Unknown Fluid Type Synovial Fluid Color Yellow Fluid Appearance Hazy Fluid WBC 285 Fluid RBC 200 Fluid Seg Neutrophils 16 Fluid Lymphocytes 45 Fluid Monocytes 38 Fluid Comment Synovial Crystals None seen Critical care attestation.: If time is entered above; I have spent that time in minutes in the direct care of this critically ill patient, excluding procedure time. ED Disposition Clinical Impression: Acute arthritis Osteoarthritis Qualifiers: Osteoarthritis location: knee Osteoarthritis type: unspecified Laterality: bilateral Qualified Code(s): M17.0 - Bilateral primary osteoarthritis of knee Disposition: TO HOME OR SELFCARE Is pt being admited?: No Does the pt Need Aspirin: No Condition: Stable Instructions: Osteoarthritis (ED) Additional Instructions: I would recommend follow-up with a primary care clinic and an orthopedic doctor. Rx as directed for your knee discomfort. Prescriptions: Naproxen [Naprosyn] 375 mg PO BID PRN #12 tablet PRN Reason: Pain, Moderate (4-6) Referrals: PRIMARY CARE,MD [Primary Care Provider] - 3-5 Days Time of Disposition: 13:26
[2019-02-14 13:07] LABS: Monocytes Body Fluid 38 %; Total Cells Counted 100 /mm3
[2019-02-14 13:54] VITALS: BP 135/59
== END 2019-02-14 13:54 | disposition home or self-care (01) ==
LOC: ED 09:04
DX: M17.0 Bilateral primary osteoarthritis of knee (principal); I10 Essential (primary) hypertension; I25.2 Old myocardial infarction; M19.90 Unspecified osteoarthritis, unspecified site; J45.909 Unspecified asthma, uncomplicated; G47.30 Sleep apnea, unspecified; Z90.49 Acquired absence of other specified parts of digestive tract; Z87.891 Personal history of nicotine dependence
CPT/HCPCS: 82947; 84160; 85048; 87116; 89051